=== PATIENT | female | born 1945 | race Two or more races ===

== ENCOUNTER → 2016-06-17 | Day surgery (SDC) | payer OTHER ==
[~2016-06-17] MED LIST: ASPI81TA50 PO; CHOL100013 PO; CRESTOR20 MG PO; FENTANYL PF 100 MCG/2 ML VIAL. IV PRN; HYDR-2666 PO; IV RINGERS,LACTATED 1000ML 1,000 ML IV SCH; LIDOCAINE 1% 1 ML SYRINGE. ID PRN; MECL12.52 PO; MELO-156 PO; METF500T9 PO; NITR100C PO; ONDANSETRON PF 4 MG/2 ML VIAL. IV PRN; PANT40TA5 PO; PROCHLORPERAZINE 10 MG/2 ML VIAL. IV PRN; PROPOFOL 20 ML IV ONE; TRAM50TA PO; [UNRECOGNIZED DRUG - CODE] PO
[2016-06-17 07:53] VITALS: BP 121/70
--- NOTE | 2016-06-18 07:41 | CONS ---
DATE OF CONSULTATION: 06/17/2016 REFERRING PHYSICIAN: Rick Ramirez MD HISTORY OF PRESENT ILLNESS: A 70-year-old female whose past medical history is significant for gastroesophageal reflux disease, fibromyalgia, hyperlipidemia, osteoarthrosis, diabetes as well as gastric ulcers seen for surveillance endoscopy to confirm healing. She has been on Protonix 40 mg daily, interim, she has also undergone aneurysm surgery. She is otherwise without additional complaints. PAST MEDICAL HISTORY: Lupus, diabetes, arthritis, hyperlipidemia. ALLERGIES: ATORVASTATIN, IBUPROFEN, METRONIDAZOLE, OXYCODONE. MEDICATIONS: Includes Benadryl, aspirin, vitamin D, meclizine, metformin, pantoprazole 40 mg daily, Crestor 20 mg daily, tramadol daily. PAST SURGICAL HISTORY: Status post hysterectomy, aneurysm surgery. REVIEW OF SYSTEMS: Per records. PHYSICAL EXAMINATION: GENERAL: Reveals a well-nourished, well-developed female, who is alert, conversant, in no acute distress. VITAL SIGNS: Temperature is 99, pulse 70, respirations 20. HEENT: Normocephalic and atraumatic head. Pupils and extraocular muscles not tested. Sclerae anicteric. NECK: Supple. LUNGS: Clear. CARDIOVASCULAR: Reveals an S1, S2 without S3, S4 or appreciable murmur. ABDOMEN: Reveals a soft abdomen, normal bowel sounds, without appreciable hepatosplenomegaly. EXTREMITIES: Reveals no cyanosis, clubbing or edema. IMPRESSION: Gastric ulcer. Surveillance exam to confirm ulcer healing is recommended as 2-4% gastric ulcers in fact are early gastric cancers. ____ and possible biopsies were recommended and the patient is willing to proceed. NICKY LOPEZ MD DR: SHAR/nayana JOB#: [id number] / [id number] RICK Lorenz MD
--- NOTE | 2016-06-18 16:10 | PATHOLOGY ---
PATHOLOGY REPORT * * * * * * * * FINAL DIAGNOSIS: Gastric biopsies, gastric ulcer: - Reactive gastropathy with ulceration. COMMENT: Sections of the gastric biopsy reveal segments of gastric antral mucosa and acute inflammatory exudate. The gastric antral mucosa shows congestion, mild foveolar hyperplasia, and mild chronic inflammation. An immunoperoxidase stain for Helicobacter is obtained. No Helicobacter organisms are identified. The findings are consistent with a reactive gastropathy with ulceration. (JPM:csd; d/t: 06/18/2016) REPORT ELECTRONICALLY SIGNED BY: Delfino Martinez M.D. DATE/TIME: 06/18/2016 16:09 * * * * * * * * GROSS PATHOLOGY: Received in formalin labeled "Griselda Hernandez and gastric ulcer bx," are 5 segments of mckinney soft tissue measuring 1.3 x 0.3 x 0.2 cm in aggregate dimensions and ranging from 0.2 to 0.6 cm in maximum dimension. The specimen is submitted entirely in cassette A1. (TTL; 06/17/2016) INITIAL CPT CODE(S): A; 15511, 67367 Professional services performed by [facility] [address] Technical services performed by [facility] at [address] [place] [address], [facility] [address] [address]. SPECIMEN(S) RECEIVED: A.Gastric ulcer biopsy CLINICAL HISTORY: Gastric ulcer PATIENT: GRISELDA HERNANDEZ /AGE: 206/21/1945 (Age: 70) PATIENT #: [id number] ALT CASE #: SPECIMEN COLLECTION DATE: 06/17/2016 SPECIMEN RECEIVED DATE: 06/17/2016 [facility] - [address] [place] [address] - PHONE: [phone] * * * END OF REPORT * * *
== END | disposition home or self-care (01) ==
LOC: ENDOS 06:00
PROVIDERS: ATTEND Internal Medicine Gastroenterology
DX: K29.50 Unspecified chronic gastritis without bleeding (principal); I25.10 Atherosclerotic heart disease of native coronary artery without angina pectoris; E78.00 Pure hypercholesterolemia, unspecified; K21.9 Gastro-esophageal reflux disease without esophagitis; Z90.710 Acquired absence of both cervix and uterus; M19.90 Unspecified osteoarthritis, unspecified site; E11.9 Type 2 diabetes mellitus without complications; F32.9 Major depressive disorder, single episode, unspecified; Z87.891 Personal history of nicotine dependence
CPT/HCPCS: 43239; 88305; 88342; J2704; G0641

== ENCOUNTER → 2016-06-26 | Outpatient (CLI) | payer OTHER ==
[2016-06-17 07:53] VITALS: BP 121/70
[~2016-06-26] MED LIST changes: +CONTRAST GIVEN MC PRN; -FENTANYL PF 100 MCG/2 ML VIAL. IV PRN; +IOHEXOL 240 MG/ML 50ML VIAL. PO ONE; +IOHEXOL 300 MG/ML 75 ML VIAL IV ONE; +IOHEXOL 350 MG/ML 100ML VIAL. IV ONE; -IV RINGERS,LACTATED 1000ML 1,000 ML IV SCH; -LIDOCAINE 1% 1 ML SYRINGE. ID PRN; -ONDANSETRON PF 4 MG/2 ML VIAL. IV PRN; -PROCHLORPERAZINE 10 MG/2 ML VIAL. IV PRN; -PROPOFOL 20 ML IV ONE
--- NOTE | 2016-06-26 12:52 | RAD ---
CTA abdomen and pelvis with and without contrast Indication: Follow-up abdominal aortic aneurysm. Evaluate for possible endovascular repair. Comparison study: [facility] CTA from 11/25/2015. Contrast material: 90 cc Omnipaque 350 Technique: Preliminary non-IV contrast CT images were obtained through abdomen and pelvis. Dynamic IV contrast helical CT images were then performed, and the volume rendered three-dimensional and multi planar two-dimensional reconstructions were generated. Findings: 1. Bilobed, mildly calcific dilatation of infrarenal abdominal aorta is again identified. The more superior, ectatic aortic segment again measures 27 mm in diameter, without interval change. The larger, more inferior abdominal aortic aneurysm now measures 54 mm in maximum diameter, which represents very slight interval increase in size from 52 mm on the previous study. Again, there is no evidence of aneurysm rupture. Noncalcific infrarenal neck between renal arteries and upper margin of the proximal ectatic aortic segment appears unchanged, again reversed tapering from 16 mm to 19 mm transversely over 20 mm longitudinally. Distance between renal vascular pedicles and aortic bifurcation remains approximately 13 cm. Minimal AP angulation and at least moderate medial lateral angulation of infrarenal abdominal aorta is again seen. 2. Moderate narrowing of proximal celiac trunk is again seen. SMA remains widely patent. DEBORAH is opacified. Single main renal arteries are again seen, without flow-limiting stenosis. Iliac vessels show atherosclerotic elongation and tortuosity, bilaterally. Minimally calcific common iliac arteries measure 8 to 10 mm in diameter. Noncalcific external iliac arteries and common femoral arteries measure 7 to 8 mm in diameter. Both hypogastric arteries remain widely patent. 3. Visualized lung bases remain clear. Liver and spleen remain unremarkable in size, without solid mass. Gas is identified throughout nondependent branches of mildly dilated intrahepatic biliary ductal system and within moderately dilated extrahepatic bile duct. Of note, a retrograde internal biliary stent has been inserted and removed since the previous study. Mildly increased density within distal common bile duct may well represent biliary sludge. No pancreatic mass is seen. Kidneys remain similar in size without solid mass and without urinary obstruction. No significant retroperitoneal, pelvic, or inguinal lymphadenopathy is seen. Uterus is surgically absent. Note is again made of multiple skin nodules, of uncertain significance. Impression: Bilobed dilatation of infrarenal abdominal aorta is again seen. The smaller, more proximal ectatic segment again measures 27 mm in diameter. The larger, distal aneurysm measures 54 mm in maximum diameter, which represents minimal interval change from 52 mm on the prior study. There is no evidence of aneurysm rupture. Infrarenal neck and iliofemoral access vessels remain satisfactory for endovascular repair.
== END | disposition home or self-care (01) ==
LOC: CT 09:18
PROVIDERS: ATTEND Surgery Vascular Surgery
DX: I71.4 Abdominal aortic aneurysm, without rupture (principal)
CPT/HCPCS: 74174; Q9967

== ENCOUNTER → 2016-07-17 | Outpatient (CLI) | payer OTHER ==
[2016-06-17 07:53] VITALS: BP 121/70
[~2016-07-17] MED LIST changes: -CONTRAST GIVEN MC PRN; -IOHEXOL 240 MG/ML 50ML VIAL. PO ONE; -IOHEXOL 300 MG/ML 75 ML VIAL IV ONE; -IOHEXOL 350 MG/ML 100ML VIAL. IV ONE
--- NOTE | 2016-07-17 16:19 | CARD ---
APPROVED REPORT EXAM: Two-dimensional and M-mode echocardiogram with Doppler and color Doppler. Other Information Quality : Good INDICATION Pre-Op Abdominal Aortic Aneurysm 2D DIMENSIONS RVDd1.9 (2.9-3.5cm)Left Atrium(2D)2.8 (1.6-4.0cm) IVSd0.9 (0.7-1.1cm)Aortic Root(2D)2.2 (2.0-3.7cm) LVDd4.1 (3.9-5.9cm)LVOT Diameter1.9 (1.8-2.4cm) PWd0.9 (0.7-1.1cm)LVDs2.1 (2.5-4.0cm) FS (%) 30.0 %SV60.5 ml LVEF(%)60.0 (>50%) Aortic Valve AoV Peak Manan.120.6cm/sAoV VTI26.1cm AO Peak GR.5.8mmHgLVOT Peak Manan.79.9cm/s LVOT VTI 17.59cmAO Mean GR.3mmHg DEYSI (VMAX)1.96re7DTE (VTI)1.84cm2 Mitral Valve MV E Kwdutega15.6cm/sMV DECEL WQWI189zj MV A Jkuherjg73.8cm/sMV ZHQ07up E/A Ratio0.8MVA (PHT)3.39cm2 TDI E/Lateral E'7.9E/Medial E'9.9 Tricuspid Valve TR P. Cybcaoxv198lq/sRAP LLURSTSJ2dtZw TR Peak Gr.68cbCvJWAB92ueJh Pulmonary Vein S1 Plgzprot41.3cm/sD2 Ziwfvtjd04.8cm/s PVa rckdhfic409cdnm LEFT VENTRICLE The left ventricle is normal size. There is normal left ventricular wall thickness. The left ventricu lar systolic function is normal and the ejection fraction is within normal range. The Ejection Fracti on is 60%. There is normal LV segmental wall motion. Transmitral Doppler flow pattern is Grade I-abno rmal relaxation pattern. RIGHT VENTRICLE The right ventricle is normal size. The right ventricular systolic function is normal. ATRIA The left atrium size is normal. The right atrium size is normal. The interatrial septum is intact wit h no evidence for an atrial septal defect or patent foramen ovale as noted on 2-D or Doppler imaging. AORTIC VALVE The aortic valve is calcified but opens well. Doppler and Color Flow revealed trace aortic regurgitat ion. There is no significant aortic valvular stenosis. MITRAL VALVE The mitral valve is calcified but opens well. There is no evidence of mitral valve prolapse. There is no mitral valve stenosis. Doppler and Color-flow revealed trace to mild mitral regurgitation. TRICUSPID VALVE The tricuspid valve is normal in structure Doppler and Color Flow revealed trace to mild tricuspid re gurgitation. The PA pressure was estimated at 22 mmHg. There is no tricuspid valve stenosis. PULMONIC VALVE The pulmonary valve is normal in structure Doppler and Color Flow revealed mild pulmonic valvular reg urgitation. There is no pulmonic valvular stenosis. GREAT VESSELS The aortic root is normal in size. The ascending aorta is not well seen. The IVC is normal in size an d collapses >50% with inspiration. PERICARDIAL EFFUSION There is no evidence of significant pericardial effusion. Critical Notification Critical Value: No <Conclusion> The left ventricular systolic function is normal and the ejection fraction is within normal range. The Ejection Fraction is 60%. Transmitral Doppler flow pattern is Grade I-abnormal relaxation pattern. The left atrium size is normal. The right atrium size is normal. Doppler and Color Flow revealed trace aortic regurgitation. Doppler and Color-flow revealed trace to mild mitral regurgitation. Doppler and Color Flow revealed trace to mild tricuspid regurgitation. The PA pressure was estimated at 22 mmHg. Doppler and Color Flow revealed mild pulmonic valvular regurgitation. There is no evidence of significant pericardial effusion.
== END | disposition home or self-care (01) ==
LOC: ECHO 08:34
PROVIDERS: ATTEND Internal Medicine Cardiovascular Disease
DX: Z01.810 Encounter for preprocedural cardiovascular examination (principal); I71.4 Abdominal aortic aneurysm, without rupture
CPT/HCPCS: 93306

== ENCOUNTER → 2017-02-09 | Outpatient (CLI) | payer OTHER ==
[2016-06-17 07:53] VITALS: BP 121/70
[~2017-02-09] MED LIST changes: +CONTRAST GIVEN MC PRN; -HYDR-2666 PO; +HYDR-2758 PO; +IOHEXOL 240 MG/ML 50ML VIAL. PO ONE; +IOHEXOL 300 MG/ML 75 ML VIAL IV ONE; -MELO-156 PO; +MELO7.5T29 PO
[2017-02-09 09:07] LABS: CREATININE 0.8 mg/dL (0.6-1.0); GFR 70.5
== END | disposition home or self-care (01) ==
LOC: CT 08:09
PROVIDERS: ATTEND Nurse Practitioner
DX: I71.4 Abdominal aortic aneurysm, without rupture (principal)
CPT/HCPCS: 36415; 82565; 84520

== ENCOUNTER → 2017-02-18 | Outpatient (CLI) | payer OTHER ==
[2016-06-17 07:53] VITALS: BP 121/70
[~2017-02-18] MED LIST changes: -CONTRAST GIVEN MC PRN; +IOHEXOL 300 MG/ML 100ML VIAL. IV ONE; -IOHEXOL 300 MG/ML 75 ML VIAL IV ONE; +OMEP20CA9 PO; +RANI150T6 PO
--- NOTE | 2017-02-18 11:33 | KCIC ---
CT ABD PELV W/ORAL IV CONTRAST dated 02/18/2017 10:30 AM Indication: Abdominal pain, pelvic pain. History of aneurysm repair pain for 3 weeks Comparison: 06/26/2016 Technique: Contiguous axial imaging the abdomen and pelvis performed after the intravenous administration of 67 cc Omnipaque 300. One or more of the following individualized dose reduction techniques were utilized for this examination: 1. Automated exposure control 2. Adjustment of the mA and/or kV according to patient size 3. Use of iterative reconstruction technique Findings: There is been interval stent graft repair of infrarenal abdominal aortic aneurysm. The graft is intact. The aneurysm sac has decreased in size from prior exam, measuring 4.5 cm maximum transverse diameter versus 5.4 cm . No definite endoleak or periaortic fluid collection. There is diffuse pneumobilia, unchanged. The gallbladder is somewhat distended. No calcific stone. Well-defined low-density focus within the left lobe liver is unchanged from prior exam and likely represents a small cyst. Biliary tree is mildly prominent, unchanged. Spleen is normal in size. Pancreas, adrenal glands and kidneys are stable. No hydronephrosis. There is a small amount of gas within the pancreatic duct, unchanged. Partially opacified GI tract is normal in caliber and contour. No focal bowel wall thickening. No inflammatory stranding in the mesentery. No ascites or lymphadenopathy. The appendix is not identified and likely surgically absent. Images of pelvis show mildly distended urinary bladder. The uterus is surgically absent. No free pelvic fluid or pelvic lymphadenopathy. Limited images of lung bases are clear. Heart size within normal limits. No pleural or pericardial effusion. Bone windows show no acute findings. Mild multilevel spondylosis. IMPRESSION: 1. No acute abnormality of abdomen or pelvis. 2. Interval stent graft repair of infrarenal abdominal aortic aneurysm. The aneurysm sac has decreased in size from prior exam. No apparent acute complication. 3. Pneumobilia with gas in the pancreatic duct, unchanged. This is likely related to prior sphincterotomy. 4. Status post appendectomy and hysterectomy. Electronically signed by: Alexis Moreno MD (02/18/2017 11:28 AM) [facility]
== END | disposition home or self-care (01) ==
LOC: KCIC CT 09:15
PROVIDERS: ATTEND Family Medicine
DX: I71.4 Abdominal aortic aneurysm, without rupture (principal); Z86.79 Personal history of other diseases of the circulatory system; Z90.49 Acquired absence of other specified parts of digestive tract; Z90.710 Acquired absence of both cervix and uterus
CPT/HCPCS: 74177; Q9966; Q9967

== ENCOUNTER → 2017-03-11 | Outpatient (CLI) | payer OTHER ==
[2017-03-11] VITALS (9 sets, daily range): BP systolic 115–140; BP diastolic 57–70
[~2017-03-11] VITALS: Ht 154.9 cm; Wt 50.8 kg
[~2017-03-11] MED LIST changes: -IOHEXOL 240 MG/ML 50ML VIAL. PO ONE; +IOHEXOL 300 MG/ML 100ML VIAL. IART ONE; -IOHEXOL 300 MG/ML 100ML VIAL. IV ONE; +IOHEXOL 300 MG/ML 100ML VIAL. ONE; +LIDOCAINE 2% 20 ML VIAL. IJ ONE; +LIDOCAINE 2% 20 ML VIAL. ONE; +MIDAZOLAM HCL/PF 2 MG/2 ML VIAL. IV ONE; +MIDAZOLAM HCL/PF 2 MG/2 ML VIAL. ONE; +fentaNYL PF VIAL 100 MCG/2 ML VIAL IV ONE; +fentaNYL PF VIAL 100 MCG/2 ML VIAL ONE
[2017-03-11 11:21] LABS: BASO % 0 % (0-3); EOS % 2 % (0-3); HEMATOCRIT 34.9 % (36.0-47.0); HEMOGLOBIN 11.1 g/dL (12.0-15.5); LYMPH # 1.5 x10^3/uL (1.0-4.8); LYMPH % 25 % (24-48); MEAN CORPUSCULAR HEMOGLOBIN 26 pg (25-35); MEAN CORPUSCULAR HGB CONC 32 g/dL (31-37); MEAN CORPUSCULAR VOLUME 80 fL (79-100); MONO % 9 % (0-9); NEUT % 64 % (31-73); PLATELET COUNT 235 x10^3/uL (140-400); RED BLOOD COUNT 4.37 x10^6/uL (3.50-5.40); RED CELL DISTRIBUTION WIDTH 17.7 % (11.5-14.5); WHITE BLOOD COUNT 5.9 x10^3/uL (4.0-11.0)
[2017-03-11 11:29] LABS: INR 0.9 (0.8-1.1)
[2017-03-11 11:31] LABS: CALCIUM 8.7 mg/dL (8.5-10.1); CREATININE 0.6 mg/dL (0.6-1.0); GFR 98.3; POTASSIUM 4.4 mmol/L (3.5-5.1)
--- NOTE | 2017-03-11 12:43 | PDOC ---
MODERATE SEDATION ASSESSMENT RISKS/ALTERNATIVES Risks/Alternatives Risks and alternatives of this type of sedation and procedure discussed with: RISK/ALTERNATIVES: Patient H & P ON CHART H & P H & P on chart and reviewed for co-morbid conditions and appropriate labs. H&P ON CHART: Yes STATUS PREG STATUS ASSESSED: Yes MEDS/ALLERGIES REVIEWED Meds/Allergies Reviewed Medications and Allergies including time and route of recently administered narcotics and sedatives. MEDS/ALLERGIES REVIEWED: Yes ASA RATING ASA RATING: II AIRWAY ASSESSMENT Airway Assessment Airway patency, oral function limitations, presence of caps, crowns, dentures, partials, and ability to extend neck assessed. AIRWAY ASSESSMENT: Yes MALLAMPATI SCORE MALLAMPATI SCORE: II PRE-SEDATION ASSESSMENT PRE-SEDATION ASSESSMENT: Yes NAVID BARRIOS MD Mar 11, 2017 12:42
--- NOTE | 2017-03-11 14:08 | CARD ---
APPROVED REPORT Procedure(s) performed: MODERATE SEDATION 32 MINUTES HISTORY previous CHF: tobacco history() , hypertension. INDICATION The indication(s) include : positive stress test, chest pain. CASE TECHNIQUE The patient was brought electively into the cardiac catheterization lab. A timeout was performed conf irming the patient's name, date of , procedure, and site of procedure. All necessary parties wer e wearing the appropriate personal protective equipment and radiation monitoring devices. After expla ining the risks and benefits of the procedure, informed consent was obtained.(See nursing notes for m edications administered). The right groin was sterilely prepped and draped. The right femoral groin w as infiltrated with 2% Lidocaine subcutaneous anesthesia. During this case, Fluoroscopy and low osmol ar contrast were used for imaging. A sheath was inserted into the right femoral artery without diffic ulty. Coronary angiography was performed using coronary diagnostic catheters. The left coronary syste m was accessed and visualized with a Diagnostic catheter. The right coronary system was accessed and visualized with a Diagnostic catheter. The left ventricle was accessed and visualized with a Diagnost ic catheter. Left ventricular/Aortic Valve gradient assessed on pullback. Left ventriculogram was per formed in GRACIA projection. An aortogram of the abdominal aorta was performed. Pre-demployment femoral angiogram was performed . Closure device was deployed with a Angioseal without any complications. The patient tolerated the procedure well and there were no complications associated with the procedure. Coronary Angiography The patient's coronary anatomy is right dominant. The left main coronary artery is a medium size vessel free of disease. The left main bifurcates to th e left anterior descending and circumflex. The left anterior descending artery is a medium size vessel free of disease. The first diagonal branc h is a small size vessel free of disease. The second diagonal branch is a small size vessel free of d isease. The third diagonal branch is a small size vessel free of disease. The circumflex artery is a small size vessel free of disease. The first obtuse marginal branch is a s mall size vessel free of disease. The second obtuse marginal branch is a small size vessel free of di sease. The third obtuse marginal branch is a small size vessel free of disease. The right coronary artery is a medium size vessel free of disease. The right posterior descending art radha is a small size vessel free of disease. The right posterolateral branch is a small size vessel fr ee of disease. Left Ventriculography The left ventricle is normal in size with normal contractility. The left ventricular ejection fractio n is estimated to be 80%. The left ventricular end diastolic pressure is 10 mmHg. There was no gradie nt across the aortic valve upon pullback. Aorta The stents in the distal abdominal Aorta and both iliacs are open and there is no significant disease , only some tortuosity. No evidence of aneurysm seen. Conclusion This pt has normal coronaries but all the branches are very small, no spasm was seen, but I would sti ll consider Prinzemetal angina in her due to the symptoms and EKG changes. Will add nitrates or Ca(+) channel kristina to her meds as an out-pt and see how she responds. Recommendations Medical Therapy
== END | disposition home or self-care (01) ==
LOC: CCL 10:33
PROVIDERS: ATTEND Internal Medicine Cardiovascular Disease
DX: I11.0 Hypertensive heart disease with heart failure (principal); I50.9 Heart failure, unspecified; I25.10 Atherosclerotic heart disease of native coronary artery without angina pectoris; E78.00 Pure hypercholesterolemia, unspecified; K21.9 Gastro-esophageal reflux disease without esophagitis; M19.90 Unspecified osteoarthritis, unspecified site; F32.9 Major depressive disorder, single episode, unspecified; E11.9 Type 2 diabetes mellitus without complications; Z86.69 Personal history of other diseases of the nervous system and sense organs; Z90.710 Acquired absence of both cervix and uterus; Z87.39 Personal history of other diseases of the musculoskeletal system and connective tissue; Z86.39 Personal history of other endocrine, nutritional and metabolic disease; Z88.8 Allergy status to other drugs, medicaments and biological substances
CPT/HCPCS: 36415; 75625; 80048; 85025; 85610; 93458; 99152; 99153; C1769; C1771; C1892; J1644; J2250; J3010; Q9967; G0269; J2001

== ENCOUNTER → 2017-10-26 | Outpatient (CLI) | payer OTHER ==
[2017-10-26 12:14] LABS: BLOOD UREA NITROGEN 15 mg/dL (7-20)
[2017-10-26 12:14] LABS: CREATININE 0.9 mg/dL (0.6-1.0); GFR 61.4
[2017-10-26] MEDS: IOHEXOL 240 MG/ML 50ML VIAL. PO (12:15)
[2017-10-26] MEDS: IOHEXOL 300 MG/ML 100ML VIAL. IV (13:17)
== END | disposition home or self-care (01) ==
LOC: CT 11:26
DX: K57.30 Diverticulosis of large intestine without perforation or abscess without bleeding (principal); N28.1 Cyst of kidney, acquired; K76.89 Other specified diseases of liver; I71.4 Abdominal aortic aneurysm, without rupture
CPT/HCPCS: 36415; 74177; 82565; 84520; Q9966; Q9967

== ENCOUNTER → 2018-03-23 | Outpatient (CLI) | payer OTHER ==
[2017-03-11 15:00] VITALS: BP 124/60
[~2018-03-23] MED LIST changes: -IOHEXOL 300 MG/ML 100ML VIAL. IART ONE; -IOHEXOL 300 MG/ML 100ML VIAL. ONE; -LIDOCAINE 2% 20 ML VIAL. IJ ONE; -LIDOCAINE 2% 20 ML VIAL. ONE; -MIDAZOLAM HCL/PF 2 MG/2 ML VIAL. IV ONE; -MIDAZOLAM HCL/PF 2 MG/2 ML VIAL. ONE; +RANI150T21 PO; -RANI150T6 PO; +REGADENOSON 0.4 MG/5 ML DISP.SYRIN. IV ONE; -fentaNYL PF VIAL 100 MCG/2 ML VIAL IV ONE; -fentaNYL PF VIAL 100 MCG/2 ML VIAL ONE
--- NOTE | 2018-03-23 13:50 | RAD ---
MR#: [id number] Date of Study: 03/23/2018 Ordering Physician: NAVID BARRIOS Referring Physician: MIC IBARRA Tech: RT Jean-Pierre (R) (N) APPROVED REPORT Test Type: Pharmacological Stress Nurse/Tech: Diego Fenton RN Test Indications: Chest pain Cardiac History: aneurysm, murmur, high cholesterol, DM Medications: See Electronic Medical Record Medical History: See Electronic Medical Record Resting ECG: SR, PVC Resting Heart Rate: 70 bpm Resting Blood Pressure: 132/52mmHg Pretest Chest Pain: None Nurse/Tech Notes lungs CTA, S1S2 Consent: The procedure was explained to the patient in lay terms. Informed consent was witnessed. Orestes eout was entered into [employer]. History and Stress Test performed by Diego Fenton RN Pharm. Details Pharmacologic stress testing was performed using 0.4mg per 5ml of regadenoson given intravenously ove r 7-10 seconds. Stress Symptoms dyspnea, chest pressure 7/10 POST EXERCISE Reason for Termination: Infusion complete Max HR: 118 bpm Max Blood Pressure: 132/52mmHg Blood Pressure response to exercise: Normal blood pressure response during stress. Heart Rate response to exercise: normal response Chest Pain: Yes. pressure 7/10 Arrhythmia: Yes. PVC ST Change: No. INTERPRETATION Stress EKG Conclusion: The resting EKG shows a sinus rhythm, a PVC and nonspecific ST-T wave changes. The stress EKG shows no significant changes from baseline. No EKG evidence of stressed induced ischemia. Imaging Protocol IMAGE PROTOCOL: Rest Tc-99m/stress Tc-99m 1 day Rest: Stress: Viability: Radiopharm.Tc99m LqgafojrpCn59a Sestamibi Dose12.6mCi 33mCi Duration 13min. 13min. Img Date 03/23/2018 03/23/2018 Inj-Img Oeps65ozv. 60min. Rest Admin Site:[facility] Worker:RT Janette (R)(N) Stress Admin Site: [facility] Worker: RT Janette (R)(N) STRESS DATA End Diast. Vol.39.0mlLVEDV index BSA26.0ml End Syst. Vol.3.0mlLVESV index BSA2.0ml Myocardial Mass74.0gEject. Tubkgssd46.0% Stress Scores Regional WT0.00Summed WT0.00 Regional WM0.00Summed WM3.00 LV Perfusion The stress scans showed no significant defects. The rest scans showed no significant defects. Nuclear imaging shows no reversible ischemia or infarct. Wall Motion Left ventricular systolic function is normal with an ejection fraction of greater than 70%. LV Perf. Quant 17 Seg. SSS1.00 17 Seg. SRS1.00 17 Seg. SDS0.00 Stress Defect Extent (% LAD)0.00Rest Defect Extent (% LAD)0.00Rev. Defect Extent (% LAD)0.00 Stress Defect Extent (% LCX) 5.00Rest Defect Extent (% LCX)0.00Rev. Defect Extent (% LCX)0.00 Stress Defect Extent (% RCA)0.00Rest Defect Extent (% RCA)0.00Rev. Defect Extent (% RCA)0.00 Stress Defect Extent (% SARABJIT)0.90Rest Defect Extent (% SARABJIT)0.00Rev. Defect Extent (% SARABJIT)0.00 Conclusion 1. No EKG evidence of stressed induced ischemia. 2. Nuclear imaging shows no reversible ischemia or infarct. 3. Normal left ventricular systolic function with an ejection fraction of greater than 70%. 4. Low risk Lexiscan nuclear stress test. Signed by : Jhoan Correa MD Electronically Approved : 03/23/2018 13:50:11
== END | disposition home or self-care (01) ==
LOC: NM 09:38
PROVIDERS: ATTEND Internal Medicine Cardiovascular Disease
DX: R07.9 Chest pain, unspecified (principal); R01.1 Cardiac murmur, unspecified; E78.00 Pure hypercholesterolemia, unspecified; E11.9 Type 2 diabetes mellitus without complications; N30.20 Other chronic cystitis without hematuria; M25.512 Pain in left shoulder; M25.561 Pain in right knee; I10 Essential (primary) hypertension; Z98.890 Other specified postprocedural states; Z95.828 Presence of other vascular implants and grafts; Z90.49 Acquired absence of other specified parts of digestive tract; Z87.891 Personal history of nicotine dependence
CPT/HCPCS: 78452; 93017; 96374; 96375; 96376; A9500; J2785

== ENCOUNTER → 2019-03-01 | Outpatient (CLI) | payer OTHER ==
[2017-03-11 15:00] VITALS: BP 124/60
[~2019-03-01] MED LIST changes: -HYDR-2758 PO; +HYDR-2761 PO; +METF500T11 PO; -METF500T9 PO; +OMEP20CA10 PO; -OMEP20CA9 PO; -PANT40TA5 PO; +PANT40TA77 PO; +RANI-376 PO; -RANI150T21 PO; -REGADENOSON 0.4 MG/5 ML DISP.SYRIN. IV ONE
--- NOTE | 2019-03-01 10:13 | KCIC ---
EXAM: Pelvic sonogram. HISTORY: Pain. TECHNIQUE: Sonographic imaging of the pelvis was performed. COMPARISON: None. FINDINGS: The uterus is surgically absent. The ovaries are not seen. There bowel loops within the right adnexa at the site of reported pain. No adnexal mass or cyst is seen. There is no free fluid. IMPRESSION: 1. Surgically absent uterus. The ovaries are not visualized and may also be surgically absent. 2. Prominent bowel loops within the right adnexa. Electronically signed by: Jory Castillo MD (03/01/2019 10:11 AM) [place] [id number]
--- NOTE | 2019-03-01 10:47 | KCIC ---
EXAM: Abdomen sonogram. HISTORY: Pain. TECHNIQUE: Sonographic imaging of the abdomen was performed. COMPARISON: 10/26/2017. FINDINGS: The liver is normal in size. There is a 1.4 cm hepatic cyst. No solid hepatic lesion is seen. The common bile duct is normal in caliber. The gallbladder is distended. There is no gallbladder wall thickening. There is no evidence of cholelithiasis. The kidneys are normal in size. There is a 1.3 cm hypoechoic lesion with internal echoes within the left kidney. The aorta, inferior vena cava, pancreas and spleen are partially obscured due to bowel gas. IMPRESSION: 1. 1.4 cm hepatic cyst. 2. Distended gallbladder, likely due to the preprandial status the patient. There is no sonographic evidence of cholecystitis. 3. 1.3 cm hypoechoic lesion with internal echoes within the left kidney. This corresponds with the location of the cyst on the study dated 10/26/2018. The possibility of a cyst with milk of calcium or debris is not excluded. Short-term sonographic follow-up or further characterization with a CT or MRI can be performed to confirm benignity. 4. Limited evaluation due to bowel gas. Note is made that a known aortic aneurysm and aortic endograft are obscured. Electronically signed by: Jory Castillo MD (03/01/2019 10:45 AM) [facility]
== END | disposition home or self-care (01) ==
LOC: KCIC US 08:32
PROVIDERS: ATTEND Nurse Practitioner
DX: K76.89 Other specified diseases of liver (principal); N32.89 Other specified disorders of bladder; N28.9 Disorder of kidney and ureter, unspecified; Z90.710 Acquired absence of both cervix and uterus
CPT/HCPCS: 76700; 76856

== ENCOUNTER → 2019-03-17 | Outpatient (CLI) | payer OTHER ==
[2017-03-11 15:00] VITALS: BP 124/60
[~2019-03-17] MED LIST changes: +IOHEXOL 240 MG/ML 50ML VIAL. PO ONE; +IOHEXOL 300 MG/ML 100ML VIAL. IV ONE
--- NOTE | 2019-03-17 16:43 | KCIC ---
CT scan of the abdomen and pelvis with contrast 03/17/2019 CLINICAL HISTORY: Persistent right lower quadrant abdominal pain for one month. TECHNIQUE: After the oral and intravenous administration of contrast, contiguous, 5 mm axial sections were obtained through the abdomen and pelvis. 67 cc of Omnipaque 350 100 were administered intravenously during this examination. One or more of the following individualized dose reduction techniques were utilized for this study: 1. Automated exposure control. 2. Adjustment of the mA and/or kV according to patient size. 3. Use of iterative reconstruction technique. FINDINGS: Comparison study is dated 10/26/2017. Images through the lung bases demonstrate minimal dependent subsegmental atelectasis bilaterally. Air is seen without throughout the intrahepatic ducts, unchanged. A 1.2 cm rounded low-attenuation lesion is seen involving the left lobe of the liver consistent with hepatic cyst. This is unchanged. The spleen, pancreas, and adrenal glands are within normal limits. Rounded low-attenuation lesions are seen involving both kidneys which likely represent cysts. These measure 5 mm to 1.2 cm in size. Atherosclerotic calcification of the abdominal aorta and its branches is noted. A stent graft is seen within the infrarenal abdominal aorta. This is traversing an infrarenal abdominal aortic aneurysm which measures 3.7 cm in greatest transverse diameter. This is unchanged in size. The gallbladder is well-distended. No free fluid or free air is abdomen. There is no evidence of bowel obstruction. The appendix is not visualized. No inflammatory changes are seen surrounding the cecum. Images through the pelvis demonstrate the urinary bladder distended with urine. Calcifications are seen within the pelvis consistent with phleboliths. Multiple diverticula are seen involving the sigmoid colon. No free fluid is seen. Very mild S-shaped curvature of the thoracolumbar spine is seen. Degenerative changes are seen involving the mid and lower lumbar spine along with both hips. IMPRESSION: No acute abnormality is seen. Electronically signed by: Edison Maynard MD (03/17/2019 4:41 PM) [id number]
== END | disposition home or self-care (01) ==
LOC: KCIC CT 08:16
PROVIDERS: ATTEND Internal Medicine Gastroenterology
DX: K57.30 Diverticulosis of large intestine without perforation or abscess without bleeding (principal); K82.8 Other specified diseases of gallbladder; J98.11 Atelectasis; J98.4 Other disorders of lung; N28.89 Other specified disorders of kidney and ureter; I70.0 Atherosclerosis of aorta; I71.4 Abdominal aortic aneurysm, without rupture; M47.816 Spondylosis without myelopathy or radiculopathy, lumbar region; M16.0 Bilateral primary osteoarthritis of hip; I25.10 Atherosclerotic heart disease of native coronary artery without angina pectoris; E11.9 Type 2 diabetes mellitus without complications; F17.200 Nicotine dependence, unspecified, uncomplicated; Z95.5 Presence of coronary angioplasty implant and graft; Z79.01 Long term (current) use of anticoagulants
CPT/HCPCS: 74177; 82565; Q9966; Q9967

== ENCOUNTER → 2019-03-28 | Outpatient (CLI) | payer OTHER ==
[2017-03-11 15:00] VITALS: BP 124/60
[~2019-03-28] MED LIST changes: +BARIUM SULFATE 60% 355 ML SUSP PO ONE; -IOHEXOL 240 MG/ML 50ML VIAL. PO ONE; -IOHEXOL 300 MG/ML 100ML VIAL. IV ONE
--- NOTE | 2019-03-28 10:46 | RAD ---
EXAM: SMALL BOWEL FOLLOW-THROUGH. HISTORY: Right lower quadrant pain. COMPARISON: CT 10/26/2017. FINDINGS: A deckhand oyster dredge image was obtained. Barium contrast material was administered orally and followed in its course through the stomach, small bowel and proximal colon with fluoroscopy and plain radiographs. 6 fluoroscopic images were obtained. Fluoroscopy time 1.4 minutes. The deckhand oyster dredge image demonstrates changes of endoluminal repair of an abdominal aortic aneurysm. Stool throughout the right colon suggests mild constipation. There are no distended small bowel loops. The duodenal sweep is not cross the midline. The jejunum is on the right. There is no evidence of volvulus. The cecum is in the right lower quadrant. A small small bowel diverticulum is likely along the distal duodenum or proximal jejunum. There are no distended small bowel loops. No strictures are seen. The small bowel fold pattern is unremarkable. Transit time was normal at <60 minutes (normal <2 hours.) IMPRESSION: 1. Small bowel nonrotation. The duodenal sweep is not cross the midline. The cecum is in the right lower quadrant. There is no evidence of volvulus. 2. No small bowel lesions are seen. 3. Correlate for mild constipation. Electronically signed by: Norbert Salazar MD (03/28/2019 10:42 AM) [facility]
== END | disposition home or self-care (01) ==
LOC: RAD 08:00
PROVIDERS: ATTEND Internal Medicine Gastroenterology
DX: K59.00 Constipation, unspecified (principal)
CPT/HCPCS: 74250

== ENCOUNTER → 2019-03-29 | Outpatient (CLI) | payer OTHER ==
[2017-03-11 15:00] VITALS: BP 124/60
[~2019-03-29] MED LIST changes: -BARIUM SULFATE 60% 355 ML SUSP PO ONE
--- NOTE | 2019-03-29 09:37 | RAD ---
MECKELS SCAN Clinical Indication: Right lower quadrant abdominal pain x2 months. Comparison: CT abdomen and pelvis with contrast March 17, 2019. Technique: Patient is injected with 10 mCi of technetium 99m pertechnetate. Anterior dynamic imaging of the abdomen acquired x45 minutes. Right and left lateral static images obtained. Findings: Tracer is seen in vascular pool. There is physiologic tracer uptake in the stomach. Tracer is excreted and propagates in the proximal small bowel. No focal accumulation of tracer is identified in the right lower quadrant. Tracer gradually accumulates in the urinary bladder, normal. IMPRESSION: No pertechnetate avid Meckel's diverticulum. Electronically signed by: Kota Santillan MD (03/29/2019 9:34 AM) [id number]
== END | disposition home or self-care (01) ==
LOC: NM 07:29
PROVIDERS: ATTEND Internal Medicine Gastroenterology
DX: R10.31 Right lower quadrant pain (principal)
CPT/HCPCS: 78290; 96374; A9512

== ENCOUNTER → 2019-07-04 | Outpatient (CLI) | payer MEDICARE ==
[2017-03-11 15:00] VITALS: BP 124/60
[~2019-07-04] MED LIST changes: -MECL12.52 PO; +MECL12.573 PO; -OMEP20CA10 PO; +OMEP20CA16 PO
--- NOTE | 2019-07-04 11:45 | KCIC ---
CT MAXILLOFACIAL WO CONTRAST DATE: 07/04/2019 10:30 AM INDICATION: Left-sided nasal pain. COMPARISON: None. TECHNIQUE: CT images of the maxillofacial structures were obtained without intravenous contrast. One or more of the following dose reduction techniques were utilized: Automated exposure control (AEC), Adjustment of mA and/or kV according to patient size, Use of iterative reconstruction technique such as ASiR, CT scan done according to ALARA and image gently/image wisely FINDINGS: Mild mucosal thickening in the right maxillary sinus alveolar recess. The left maxillary, ethmoid, sphenoid, and frontal sinuses are clear. Frontal sinuses are underpneumatized. No air-fluid levels. No significant mucoperiosteal thickening. The osteomeatal units are patent. Nasal septum is slightly deviated to the right. The visualized osseous structures are otherwise normal. The visualized orbits and globes are normal. Brain parenchyma is not well evaluated due to technique. IMPRESSION: No evidence of inflammatory sinonasal disease. Electronically signed by: Catrachito Salvador MD (07/04/2019 11:42 AM) [id number]
== END | disposition home or self-care (01) ==
LOC: KCIC CT 09:58
PROVIDERS: ATTEND Family Medicine
DX: J34.89 Other specified disorders of nose and nasal sinuses (principal)
CPT/HCPCS: 70486

== ENCOUNTER → 2020-07-12 | Outpatient (CLI) | payer MEDICARE ==
[2017-03-11 15:00] VITALS: BP 124/60
[~2020-07-12] MED LIST changes: -MECL12.573 PO; +MECL12.582 PO; +METF-658 PO; -METF500T11 PO
--- NOTE | 2020-07-12 13:26 | KCIC ---
EXAM: CT Abdomen without IV contrast INDICATION: Reason: Adbominal pain, hx aneurysm repair. / Spl. Instructions: / History: TECHNIQUE: Multi-detector row CT images were acquired from the lung bases through the abdomen without the use of IV contrast. Sagittal and coronal images were acquired from the transaxial data. All CT s cans performed at this facility utilize dose optimization techniques as appropriate to the exam, incl uding the following: Automated exposure control and adjustment of the mA and/or KV according to patie nt size (this includes techniques or standardized protocols for targeted exams where dose is indicati on/reason for exam). ORAL CONTRAST: None COMPARISON: None FINDINGS: The absence of IV contrast limits evaluation of soft tissue pathology. LOWER CHEST: Unremarkable LIVER: Left hepatic lobe 1.3 cm low-density lesion compatible with a cyst is present. BILIARY SYSTEM: Gallbladder is mildly distended. The common bile duct in the pancreatic head is mildl y dilated at 10 mm. PANCREAS: Unremarkable SPLEEN: Unremarkable ADRENALS: Unremarkable KIDNEYS & URETERS: Unremarkable GASTROINTESTINAL: The stomach again shows fat density in the gastric antrum and pylorus, similar to p rior. The small bowel, and colon are unremarkable. The appendix is normal. MESENTERY/PERITONEUM/RETROPERITONEUM: Unremarkable VASCULAR: Aortobifemoral stent graft is redemonstrated with no change in caliber of the aneurysm sac measuring 3.6 x 3.2 cm (image 43 series 2). LYMPH NODES: No adenopathy OSSEOUS & SOFT TISSUES: Unremarkable IMPRESSION: 1. Treated abdominal aortic aneurysm with aortobiiliac stent graft showing no change in sac size at 3 .6 x 3.2 cm. No evidence of aneurysm leak or rupture on noncontrast CT. 2. Interval distention of the gallbladder with mild extra hepatic biliary dilation. Consider correlat ion with gallbladder ultrasound if clinically warranted. 3. 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 Electronically signed by: Sheeba Moncada MD (07/12/2020 1:24 PM) [id number]
== END ==
LOC: KCIC CT 10:08
PROVIDERS: ATTEND Nurse Practitioner
DX: K82.8 Other specified diseases of gallbladder (principal); I71.4 Abdominal aortic aneurysm, without rupture
CPT/HCPCS: 74150

== ENCOUNTER → 2020-08-01 | Outpatient (CLI) | payer MEDICARE ==
[2017-03-11 15:00] VITALS: BP 124/60
--- NOTE | 2020-08-01 16:39 | KCIC ---
US ABDOMEN LTD History: Reason: abnormal CT scan; liver cyst on CT [id number] USABD 2019 / Spl. Instructions: / Hi story: Abdominal pain Comparison: CT July 12, 2020. Technique: Transabdominal ultrasound images are obtained of the right upper quadrant. Findings: Liver is normal in echogenicity. Right hepatic lobe measures 14 cm. Right hepatic lobe cyst measures 1.4 x 1.6 x 1.5 cm. Portal flow is hepatopedal. Mild distention of the gallbladder. No cholelithiasis. No gallbladder wall thickening. Common bile duct measures 5.5 mm in diameter. Visualized pancreas not well seen due to bowel gas. The right kidney measures 9.7 x 3.5 x 3.7 cm. No hydronephrosis. Aorta and IVC not well seen due to bowel gas. IMPRESSION: 1. Mild distention of the gallbladder. If persistent clinical concern for right upper quadrant pain, HIDA scan can further evaluate gallbladder pathology. 2. Small right hepatic lobe cyst. Electronically signed by: Edison Onofre DO (08/01/2020 4:37 PM) [id number]
== END ==
LOC: KCIC US 10:09
PROVIDERS: ATTEND Nurse Practitioner
DX: K82.8 Other specified diseases of gallbladder (principal); K76.89 Other specified diseases of liver
CPT/HCPCS: 76705

== ENCOUNTER → 2020-08-23 | Outpatient (CLI) | payer MEDICARE ==
[2017-03-11 15:00] VITALS: BP 124/60
[~2020-08-23] MED LIST changes: +AMLO2.5T5 PO; +LISI2.5T PO; +OMEP40CA45 PO
== END ==
LOC: LAB 10:28
PROVIDERS: ATTEND Internal Medicine Cardiovascular Disease
DX: Z01.812 Encounter for preprocedural laboratory examination (principal); Z20.822 Contact with and (suspected) exposure to COVID-19
CPT/HCPCS: U0003; U0005

== ENCOUNTER 2020-08-26 06:56 | Outpatient (CLI) | payer MEDICARE ==
[2020-08-26] VITALS (15 sets, daily range): BP systolic 100–119; BP diastolic 47–57
[~2020-08-26] VITALS: Ht 154.9 cm; Wt 52.2 kg
[~2020-08-26 06:56] MED LIST changes: -AMLO2.5T5 PO; -LISI2.5T PO; -OMEP40CA45 PO
[2020-08-26 07:41] LABS: HEMATOCRIT 38.4 % (36.0-47.0); HEMOGLOBIN 13.1 g/dL (12.0-15.5); RED BLOOD COUNT 4.23 x10^6/uL (3.50-5.40); RED CELL DISTRIBUTION WIDTH 13.7 % (11.5-14.5); WHITE BLOOD COUNT 5.8 x10^3/uL (4.0-11.0)
[2020-08-26] MEDS ORDERED: LIDOCAINE 1% PF 2 ML VIAL. ONE (07:48)
[2020-08-26] MEDS ORDERED: IODIXANOL 320 MG/ML 100 ML VIAL. ONE (07:48)
[2020-08-26] MEDS ORDERED: LISI2.5T PO (07:52)
[2020-08-26] MEDS ORDERED: AMLO2.5T5 PO (07:52)
[2020-08-26] MEDS ORDERED: OMEP40CA45 PO (07:52)
[2020-08-26] MEDS ORDERED: METF-658 PO (07:52)
[2020-08-26 07:55] LABS: CALCIUM 8.8 mg/dL (8.5-10.1); CREATININE 0.8 mg/dL (0.6-1.0); GFR 69.7
[2020-08-26 07:56] LABS: PROTHROMBIN TIME PATIENT 13.2 SEC (11.7-14.0)
[2020-08-26] MEDS ORDERED: MIDAZOLAM HCL/PF 2 MG/2 ML VIAL. IV ONE (08:15)
[2020-08-26] MEDS ORDERED: NITROGLYCERIN 200 MCG/2 ML SYRINGE FOR CATH/VASC LAB. IART ONE (08:15)
[2020-08-26] MEDS ORDERED: HEPARIN for IV BOLUS 10,000 UNIT/10 ML VIAL. IART ONE (08:15)
[2020-08-26] MEDS ORDERED: VERAPAMIL 5 MG/2 ML VIAL. IART ONE (08:15)
[2020-08-26] MEDS ORDERED: fentaNYL PF VIAL 100 MCG/2 ML VIAL IV ONE (08:15)
[2020-08-26] MEDS ORDERED: LIDOCAINE 1% PF 2 ML VIAL. INJ ONE (08:15)
[2020-08-26] MEDS ORDERED: IODIXANOL 320 MG/ML 100 ML VIAL. IART ONE (08:15)
[2020-08-26] MEDS ORDERED: CONTRAST GIVEN. MC PRN (08:30)
[2020-08-26] MEDS ORDERED: IV 1/2 NORMAL SALINE 1,000 ML IV SCH (09:00)
--- NOTE | 2020-08-26 09:00 | PDOC ---
MODERATE SEDATION ASSESSMENT RISKS/ALTERNATIVES Risks/Alternatives Risks and alternatives of this type of sedation and procedure discussed with: RISK/ALTERNATIVES: Patient H & P ON CHART H & P H & P on chart and reviewed for co-morbid conditions and appropriate labs. H&P ON CHART: Yes STATUS PREG STATUS ASSESSED: N/A MEDS/ALLERGIES REVIEWED Meds/Allergies Reviewed Medications and Allergies including time and route of recently administered narcotics and sedatives. MEDS/ALLERGIES REVIEWED: Yes ASA RATING ASA RATING: III AIRWAY ASSESSMENT Airway Assessment Airway patency, oral function limitations, presence of caps, crowns, dentures, partials, and ability to extend neck assessed. AIRWAY ASSESSMENT: Yes MALLAMPATI SCORE MALLAMPATI SCORE: II PRE-SEDATION ASSESSMENT PRE-SEDATION ASSESSMENT: Yes CHIDI RENAE MD Aug 26, 2020 09:00
--- NOTE | 2020-08-26 09:22 | CARD ---
MR#: [id number] Date of Study: 08/26/2020 Ordering Physician: CHIDI MATIAS, Referring Physician: CHIDI MATIAS, Tech: RT Brandi(R)() APPROVED REPORT Technologist: RT Brandi(R)() Nurse: Мария Holcomb RN Procedure(s) performed: Left heart catheterization, selective coronary angiography and left ventricul ography via right transradial approach FL TIME: 4.5 MINS DOSE: 19 GYCM2 CONTRAST: 82 ML MODERATE SEDATION: 30 MINUTES INDICATION The indication(s) include : unstable angina . CSHA Clinical Frailty Scale [facility] Clinical Frailty Scale: Managing Well Heart Failure Heart Failure: No CASE TECHNIQUE IV conscious sedation was used throughout procedure with appropriate monitoring and was performed in the presence of a registered nurse who was an independent trained observer other than the physician p erforming the procedure. During this case, Fluoroscopy and low osmolar contrast were used for imaging . Specimen(s) Removed: No Estimated Blood loss: 15 cc's. PROCEDURE NARRATIVE After explaining the risks, benefits and alternative options, informed consent was obtained from matthieu ent. Patient was brought to the cardiac Sports Equipment Supervisor and right wrist was prepped and draped in the usual fashion after confirming a positive modified Sigifredo's test. Arterial access was obtained in the righ t radial artery and a 6 [place] sheath was inserted. 6 [place] Pavan and 6 [place] JL 3.5 catheters we re used to perform selective angiography of the right and left coronary arteries. 6 [place] pigtail c atheter was used to perform left ventriculography. Patient tolerated the procedure well. Hemostasis was achieved using TR band. There were no immediate complications. The following findings were not ed. FINDINGS 1. Hemodynamics: Left ventricular end-diastolic pressure of 17 mmHg. No pullback gradient across th e aortic valve. 2. Left ventriculography: Normal left ventricle systolic function with ejection fraction estimated at 60%. No significant mitral regurgitation seen. 3. Coronary angiography: a. The left main coronary artery arose from the left sinus of Valsalva, gave rise to the left anteri or descending and left circumflex arteries and did not show any significant stenosis. b. The left anterior descending artery did not show any significant stenosis. The diagonal branch w hich is a medium caliber vessel showed 50% ostial stenosis. c. The left circumflex artery did not show any significant stenosis. d. The right coronary artery was a large and dominant vessel arising from the right sinus of Valsalv a that did not show any significant stenosis. Conclusion 1. No significant coronary disease 2. Normal left ventricular systolic function with ejection fraction estimated at 60% Recommendations Cardiovascular risk factor modification Signed by : Chidi Matias, Electronically Approved : 08/26/2020 09:21:37
--- NOTE | 2020-08-26 12:25 | NUR ---
Discharge Note: SUJATHA HERNANDEZ Discharge instructions and discharge home medications reviewed with Patient and a copy given. All questions have been answered and understanding verbalized. Dressing site to R wrist dry and intact, armboard in place. The following instructions and handouts were given: moderate sedation, transradial Discontinued lines and drains: IV will be DC'd by ECHO after procedure completed Patient discharged to Home or Self Care with Family Member via Wheelchair CLINT RN Addendum: 08/26/20 at 1240 by SARAH LEAL RN Amended: Links added.
--- NOTE | 2020-08-26 17:11 | CARD ---
MR#: [id number] Date of Study: 08/26/2020 Ordering Physician: CHIDI RENAE, Referring Physician: CHIDI RENAE, Tech: Cathy Nur RDCS APPROVED REPORT EXAM: Two-dimensional and M-mode echocardiogram with Doppler and color Doppler. Other Information Quality : Good INDICATION Unstable Angina 2D DIMENSIONS RVDd1.6 (2.9-3.5cm)Left Atrium(2D)2.9 (1.6-4.0cm) IVSd0.6 (0.7-1.1cm)Aortic Root(2D)2.5 (2.0-3.7cm) LVDd3.7 (3.9-5.9cm)LVOT Diameter2.0 (1.8-2.4cm) PWd0.6 (0.7-1.1cm)LVDs2.5 (2.5-4.0cm) FS (%) 31.3 %SV34.1 ml LVEF(%)60.0 (>50%) Aortic Valve AoV Peak Manan.139.3cm/sAoV VTI29.1cm AO Peak GR.7.8mmHgLVOT Peak Manan.104.6cm/s LVOT VTI 23.93cmAO Mean GR.4mmHg DEYSI (VMAX)1.10xu8TGF (VTI)2.46cm2 Mitral Valve MV E Xrehwebg78.0cm/sMV DECEL [id number] MV A Ahofojoa25.2cm/sMV RAB31ub E/A Ratio0.9MVA (PHT)3.87cm2 TDI E/Lateral E'9.7E/Medial E'12.6 Tricuspid Valve TR P. Opxuwkly928ds/sRAP QNNIXQFG6xfNu TR Peak Gr.12fhYnMXVY23zuAx Pulmonary Vein S1 Wfmwjydj53.9cm/sD2 Hadilver72.8cm/s LEFT VENTRICLE The left ventricle cavity is small. There is normal left ventricular wall thickness. The left ventric ular systolic function is normal and the ejection fraction is within normal range. The Ejection Fract ion is 55-60%. There is normal LV segmental wall motion. Transmitral Doppler flow pattern is Grade I- abnormal relaxation pattern. RIGHT VENTRICLE The right ventricle is normal size. There is normal right ventricular wall thickness. The right ventr icular systolic function is normal. ATRIA The left atrium size is normal. The right atrium size is normal. The interatrial septum is intact wit h no evidence for an atrial septal defect or patent foramen ovale as noted on 2-D or Doppler imaging. AORTIC VALVE The aortic valve is calcified but opens well. Doppler and Color Flow revealed no significant aortic r egurgitation. There is no significant aortic valvular stenosis. MITRAL VALVE The mitral valve is calcified but opens well. There is no evidence of mitral valve prolapse. There is no mitral valve stenosis. Doppler and Color-flow revealed trace mitral regurgitation. TRICUSPID VALVE The tricuspid valve is normal in structure and function. Doppler and Color Flow revealed trace tricus pid regurgitation. The PA pressure was estimated at 25 mmHg. There is no tricuspid valve stenosis. PULMONIC VALVE The pulmonic valve is not well visualized. Doppler and Color Flow revealed no pulmonic valvular regur gitation. There is no pulmonic valvular stenosis. GREAT VESSELS The aortic root is normal in size. The ascending aorta is normal in size. The IVC is normal in size a nd collapses >50% with inspiration. PERICARDIAL EFFUSION There is no evidence of significant pericardial effusion. Critical Notification Critical Value: No <Conclusion> The left ventricular systolic function is normal and the ejection fraction is within normal range. Th e Ejection Fraction is 55-60%. There is normal LV segmental wall motion. Signed by : Carlos Blanc, Electronically Approved : 08/26/2020 17:10:32
== END 2020-08-26 14:00 | disposition home or self-care (01) ==
LOC: CCL 06:56
PROVIDERS: ATTEND Internal Medicine Cardiovascular Disease
DX: I25.110 Atherosclerotic heart disease of native coronary artery with unstable angina pectoris (principal); E78.00 Pure hypercholesterolemia, unspecified; K21.9 Gastro-esophageal reflux disease without esophagitis; M19.90 Unspecified osteoarthritis, unspecified site; E11.9 Type 2 diabetes mellitus without complications; F32.9 Major depressive disorder, single episode, unspecified; Z87.440 Personal history of urinary (tract) infections; Z90.710 Acquired absence of both cervix and uterus; Z98.890 Other specified postprocedural states; Z79.899 Other long term (current) drug therapy; Z79.84 Long term (current) use of oral hypoglycemic drugs; Z88.8 Allergy status to other drugs, medicaments and biological substances
CPT/HCPCS: 36415; 80048; 85027; 85610; 93306; 93458; 99152; 99153; C1769; C1894; J1644; J2250; J3010; J3490; Q9967